=== PATIENT | female | born 1985 | race African-American/Black ===

== ENCOUNTER 2018-02-15 04:46 | Emergency (ER) | payer OTHER ==
[~2018-02-15] VITALS: Ht 157.5 cm; Wt 69.5 kg
[2018-02-15 06:12] LABS: CHLORIDE 104 mEq/L (99-109); HEMATOCRIT 34.6 % (36.0-46.0); HEMOGLOBIN 10.9 G/DL (11.9-15.5); MCH 23.2 PG (29.0-34.0); MCHC 31.5 G/DL (30.0-36.0); MCV 73.6 FL (83-99); PLATELET COUNT 262 K/uL (156-360); RBC DIS.WIDTH-CV 17.6 % (11.8-14.6); RBC DIS.WIDTH-SD 47.2 % (39-53); SODIUM 140 mEq/L (136-147); WHITE BLOOD COUNT 8.2 K/uL (4.1-10.2)
[2018-02-15 06:15] LABS: GLUCOSE 94 mg/dL (70-99); TOTAL PROTEIN 6.3 g/dL (6.4-8.3)
[2018-02-15 06:16] LABS: TOTAL BILIRUBIN 0.5 mg/dL (0.0-1.0)
[2018-02-15 06:17] LABS: SERUM ETHYL ALCOHOL < 10 mg/dL
[2018-02-15 06:18] LABS: CREATININE 0.8 mg/dL (0.6-1.3); GFR ESTIMATE (CALCULATED) > 59 mL/min/
[2018-02-15 06:19] LABS: ALKALINE PHOSPHATASE 86 IU/L (3-129)
[2018-02-15 06:19] LABS: APPEARANCE CLEAR ((CLEAR)); BILIRUBIN NEGATIVE; BLOOD NEGATIVE; COLOR YELLOW ((YELLOW)); GLUCOSE (STRIP) NEGATIVE; KETONES NEGATIVE; LEUKOCYTES NEGATIVE; NITRITE NEGATIVE; PROTEIN (STRIP) NEGATIVE; SPECIFIC GRAVITY 1.015 (1.000-1.030)
[2018-02-15 06:20] LABS: AST (GOT) 22 IU/L (2-34); UREA NITROGEN (BUN) 10 mg/dL (9-23)
[2018-02-15 06:22] LABS: ACETAMINOPHEN (TYLENOL) < 10 mcg/mL (10-30); ALT (GPT) 17 IU/L (3-49); SALICYLATE < 5.0 MG/DL (15-30)
[2018-02-15 06:32] LABS: AMPHETAMINE NEGATIVE (500 ng/mL); BARBITURATES NEGATIVE (200 ng/mL); BENZODIAZEPINES NEGATIVE (150 ng/mL); BUPRENORPHINE NEGATIVE (10 ng/mL); COCAINE NEGATIVE (150 ng/mL); METHADONE NEGATIVE (200 ng/mL); METHAMPHETAMINE NEGATIVE (500 ng/mL); OPIATES (MORPHINE) NEGATIVE (100 ng/mL); OXYCODONE NEGATIVE (100 ng/mL); PHENCYCLIDINE NEGATIVE (25 ng/mL); PROPOXYPHENE NEGATIVE (300 ng/mL); THC CANNABINOIDS NEGATIVE (50 ng/mL); TRICYCLIC ANTIDEPRESSANTS NEGATIVE (300 ng/mL)
[2018-02-15 06:56] VITALS: BP 113/67
== END 2018-02-15 07:00 | disposition left against medical advice (07) ==
LOC: EME 04:46
PROVIDERS: Emergency Medicine
DX: F22 Delusional disorders (principal); R47.89 Other speech disturbances; F43.10 Post-traumatic stress disorder, unspecified; F32.9 Major depressive disorder, single episode, unspecified; F41.1 Generalized anxiety disorder; F90.9 Attention-deficit hyperactivity disorder, unspecified type; F17.200 Nicotine dependence, unspecified, uncomplicated
CPT/HCPCS: 80053; 81003; 81025; 85027; 99281; 99284; G0480

== ENCOUNTER 2018-02-15 20:14 | Inpatient (IN) | payer OTHER ==
[~2018-02-15] VITALS: Ht 167.6 cm; Wt 70.3 kg
[2018-02-15 21:15] LABS: AMPHETAMINE NEGATIVE (500 ng/mL); BARBITURATES NEGATIVE (200 ng/mL); BENZODIAZEPINES NEGATIVE (150 ng/mL); BUPRENORPHINE PRESUMPTIVE POSITIVE (10 ng/mL); COCAINE NEGATIVE (150 ng/mL); METHADONE NEGATIVE (200 ng/mL); METHAMPHETAMINE NEGATIVE (500 ng/mL); OPIATES (MORPHINE) NEGATIVE (100 ng/mL); OXYCODONE NEGATIVE (100 ng/mL); PHENCYCLIDINE NEGATIVE (25 ng/mL); PROPOXYPHENE NEGATIVE (300 ng/mL); THC CANNABINOIDS NEGATIVE (50 ng/mL); TRICYCLIC ANTIDEPRESSANTS NEGATIVE (300 ng/mL)
[2018-02-15 22:37] LABS: HEMATOCRIT 35.3 % (36.0-46.0); MCH 22.7 PG (29.0-34.0); MCHC 31.2 G/DL (30.0-36.0); MCV 72.8 FL (83-99); PLATELET COUNT 284 K/uL (156-360); RBC DIS.WIDTH-CV 17.7 % (11.8-14.6); RBC DIS.WIDTH-SD 46.5 % (39-53); RED BLOOD COUNT 4.85 M/uL (3.80-5.20); WHITE BLOOD COUNT 5.7 K/uL (4.1-10.2)
[2018-02-15 22:51] LABS: CHLORIDE 107 mEq/L (99-109); POTASSIUM 4.2 mEq/L (3.7-5.4); SODIUM 140 mEq/L (136-147)
[2018-02-15 22:53] LABS: GLUCOSE 121 mg/dL (70-99)
[2018-02-15 22:56] LABS: SERUM ETHYL ALCOHOL < 10 mg/dL
[2018-02-15 22:57] LABS: CREATININE 0.8 mg/dL (0.6-1.3); GFR ESTIMATE (CALCULATED) > 59 mL/min/
[2018-02-15 22:59] LABS: UREA NITROGEN (BUN) 9 mg/dL (9-23)
[2018-02-15 23:00] LABS: ACETAMINOPHEN (TYLENOL) < 10 mcg/mL (10-30); SALICYLATE < 5.0 MG/DL (15-30)
[2018-02-16 03:05] VITALS: BP 110/71
[2018-02-16 08:00] VITALS: BP 107/67
[2018-02-16 16:11] VITALS: BP 113/64
[2018-02-17 09:04] VITALS: BP 115/56
[2018-02-17 16:45] VITALS: BP 118/63
[2018-02-18 08:15] VITALS: BP 116/60
[2018-02-18 15:30] VITALS: BP 100/53
[2018-02-19 07:55] VITALS: BP 94/50
[2018-02-19 17:08] VITALS: BP 123/72
[2018-02-20 07:37] VITALS: BP 109/81
[2018-02-20 16:46] VITALS: BP 101/69
[2018-02-21 07:47] VITALS: BP 103/57
[2018-02-21 16:28] VITALS: BP 112/70
[2018-02-22 08:05] VITALS: BP 131/70
[2018-02-22] MEDS ORDERED: QUETIAPINE FUM200 MG PO (10:46)
[2018-02-22] MEDS ORDERED: GABAPENTIN300 MG PO (10:46)
[2018-02-22] MEDS ORDERED: BUPRENORPHIN-N1 EACH SL (10:46)
== END 2018-02-22 12:57 | DRG 885 ==
LOC: EME → EDBD 20:14 → 1WEST 23:05 → EDOF 23:05 → ENRESERV 02-16 02:42 → 1WEST 02-16 02:51
PROVIDERS: Emergency Medicine
DX: F31.64 Bipolar disorder, current episode mixed, severe, with psychotic features (principal); F11.20 Opioid dependence, uncomplicated; F17.200 Nicotine dependence, unspecified, uncomplicated; G40.909 Epilepsy, unspecified, not intractable, without status epilepticus; R45.850 Homicidal ideations; R45.851 Suicidal ideations; F60.9 Personality disorder, unspecified; F41.9 Anxiety disorder, unspecified
CPT/HCPCS: 80048; 85027; 90837; 97150 GO; 97166 GO; 99281; 99285; G0480; J0574; J1630; J2060; Q0177